=== PATIENT | male | born 1960 | race Caucasian/White ===

== ENCOUNTER 2021-07-18 20:23 | Emergency (ER) | payer SELFPAY ==
[~2021-07-18 20:23] MED LIST: Sodium Chloride 0.9% 1,000 ML BAG ONE
[2021-07-20 12:26] LABS: SARS-CoV-2 PCR by NAA Not Detected (NotDetected)
== END 2021-07-18 23:42 | disposition expired ==
LOC: NAV ERS 20:23
DX: I46.9 Cardiac arrest, cause unspecified (principal); R65.21 Severe sepsis with septic shock; E87.2 Acidosis; Z20.822 Contact with and (suspected) exposure to COVID-19; F17.210 Nicotine dependence, cigarettes, uncomplicated
CPT/HCPCS: 36416; 92950; 96365; 96374; 96375; 96376; J7050; U0003; U0005